=== PATIENT | male | born 1955 | race African-American/Black ===

== ENCOUNTER 2024-07-21 06:19 | Emergency (ER) | payer OTHER ==
[~2024-07-21] VITALS: Ht 177.8 cm; Wt 79.0 kg
[2024-07-21 06:24] VITALS: O2SAT 96
[2024-07-21 07:37] LABS: BASOPHILS % 0.2 % (0.0-2.0); EOSINOPHILS % 0.5 % (0.0-5.0); HEMATOCRIT. 44.2 % (42.0-52.0); HEMOGLOBIN. 14.5 g/dL (14.0-18.0); LYMPHOCYTES % 9.9 % (20.0-50.0); MEAN CORPUSCULAR HEMOGLOBIN 30.4 pg (28.0-32.0); MEAN CORPUSCULAR HGB CONC 32.8 g/dL (31.0-37.0); MEAN CORPUSCULAR VOLUME 92.7 fL (80.0-94.0); MEAN PLATELET VOLUME 8.3 fl (7.4-10.4); MONOCYTES % 4.9 % (2.0-8.0); NEUTROPHILS % 84.5 % (40.0-76.0); PLATELET 335 x1000/uL (130-400); RED BLOOD CELL COUNT 4.76 mill/uL (4.7-6.1); RED CELL DISTRIBUTION WIDTH 13.6 % (11.6-14.6); WHITE BLOOD COUNT 13.5 x1000/uL (4.5-11.0)
[2024-07-21] MEDS ORDERED: AMOXICILLIN/POTASSIUM CLAVULANATE 875/125MG TAB PO ONE (07:45)
[2024-07-21 07:47] LABS: CHLORIDE 107 mEq/L (98-107); POTASSIUM 4.3 mEq/L (3.5-5.1); SODIUM 142 mEq/L (136-145)
[2024-07-21 07:48] LABS: CARBON DIOXIDE 26 mEq/L (21-32)
[2024-07-21 07:49] LABS: CALCIUM 10.4 mg/dL (8.7-10.4)
[2024-07-21 07:53] LABS: CREATININE 2.4 mg/dL (0.6-1.3)
[2024-07-21 07:54] LABS: GLUCOSE 124 mg/dL (70-105); TROPONIN I HIGH SENSITIVITY 5 ng/L (3.0-53); UREA NITROGEN BLOOD 51 mg/dL (9-23)
[2024-07-21 07:55] LABS: ALANINE AMINOTRANSFERASE 27 IU/L (10-49); ALBUMIN 4.5 g/dL (3.2-4.8); ASPARTATE AMINOTRANSFERASE 18 IU/L (<34)
[2024-07-21 07:56] LABS: BILIRUBIN DIRECT 0.2 mg/dL (<=3.0); BILIRUBIN TOTAL 0.8 mg/dL (0.1-1.0)
[2024-07-21] MEDS: AMPICILLIN SOD/SULBACTAM NA 3 G in SODIUM CHLORIDE 0.9% 100 ML IV SCH (09:19)
[2024-07-21] MEDS: LACTATED RINGERS 1,000 ML IV SCH (09:19)
[2024-07-21 09:54] LABS: TROPONIN I HIGH SENSITIVITY 5 ng/L (3.0-53)
[2024-07-21 10:00] VITALS: BP 115/75; PULSE 91; RESP 14; TEMP 36.7; O2SAT 97
== END 2024-07-21 11:32 | disposition short-term general hospital (02) ==
LOC: ER 06:19 → CANBEDREQ 08:43 → ER 11:32
DX: J32.9 Chronic sinusitis, unspecified (principal); N17.9 Acute kidney failure, unspecified; R51.9 Headache, unspecified
CPT/HCPCS: 99291; 70450; 96365; 80076; 80048; 85025; 87040; 84484; 36415; 71045; 70490; 93005; J0295; J7050